=== PATIENT | female | born 1960 | race Hispanic/Latino ===

== ENCOUNTER 2018-08-07 11:23 | Outpatient (CLI) | payer OTHER ==
--- NOTE | 2018-08-07 13:06 | Mammography Report ---
IMPLANT MAMMOGRAM: Bilateral breast imaging was done with standard and displacement technique. The parenchyma is heterogeneous and is symmetrically seen ventral to each submuscular implant. The implant contours are smooth. There is a dense collection of calcification in the right breast. No suspicious findings or secondary signs of malignancy are seen. Compared to a prior examination in July 2015 there are no interval changes. CAD was utilized. CONCLUSION: Negative implant mammogram. RECOMMENDATION: Routine follow-up. BI-RADS CATEGORY: 1 = Negative ACR BI-RADS MAMMOGRAPHIC CODES: 0 = Needs additional imaging evaluation; 1 = Negative; 2 = Benign; 3 = Probably benign; 4 = Suspicious; 5 = Malignant; 6 = Known biopsy-proven malignancy COMMENT: 1. Dense breast tissue, i.e., adenosis, fibrocystic changes, etc., may obscure an underlying neoplasm. 2. Approximately 10% of cancers are not detected with mammography. 3. A negative mammography report should not delay biopsy if a clinically suspicious mass is present. COMMENT: Patient follow-up letters are generated in [employer]
== END 2018-08-07 11:24 | disposition home or self-care (01) ==
LOC: SPVWC 11:23
PROVIDERS: ATTEND Obstetrics & Gynecology
DX: Z12.31 Encounter for screening mammogram for malignant neoplasm of breast (principal)
CPT/HCPCS: 77067